=== PATIENT | female | born 1970 | race Caucasian/White ===

== ENCOUNTER → 2023-04-13 15:09 | Outpatient (CLI) | payer OTHER, SELFPAY ==
--- NOTE | 2023-04-13 15:11 | DI.MG.S_ITS ---
BILATERAL DIGITAL SCREENING MAMMOGRAM 3D/2D WITH CAD: 04/13/2023 CLINICAL: Routine screening. Comparison mammogram 03/14/2021, 05/10/2020, 09/30/2019, 09/08/2019, There are scattered areas of fibroglandular density in both breasts (category b / 25%-50% glandular tissue). Current study was also evaluated with a Computer Aided Detection (CAD) system. No significant masses, calcifications, or other findings are seen in either breast. IMPRESSION: NEGATIVE There is no mammographic evidence of malignancy. A 1 year screening mammogram is recommended. Based on the Tyrer Cuzick model (a risk assessment model) the patient's lifetime risk is 11.7% and her 10 year risk is 3.2%. According to the ACR, ACS, and NCCN guidelines, an annual breast MRI exam along with mammogram is recommended if the patient's lifetime risk is 20% or greater. This exam was interpreted at Station ID: [id number]. NOTE: For mammograms, a report in lay terms will be sent to the patient. Approximately 15% of breast malignancies will not be visualized mammographically. In the management of a palpable breast mass, a negative mammogram must not discourage biopsy of a clinically suspicious lesion. Electronically Signed By: Murphy Etienne M.D. slc/:04/23/2023 11:50:23 letter sent: Normal Exam ACR BI-RADS Category 1: Negative 3341F
== END ==
PROVIDERS: PCP Family Medicine; Referring Provider Family Medicine; Visit Provider Family Medicine
DX: Z12.31 Encounter for screening mammogram for malignant neoplasm of breast (principal); E78.5 Hyperlipidemia, unspecified; Z11.4 Encounter for screening for human immunodeficiency virus [HIV]; Z11.59 Encounter for screening for other viral diseases; Z13.220 Encounter for screening for lipoid disorders
CPT/HCPCS: 77063; 77067

== ENCOUNTER → 2023-04-25 08:45 | Outpatient (CLI) | payer OTHER, SELFPAY ==
[2023-04-25 10:16] LABS: Alanine Aminotransferase 25 IU/L (<35); Albumin 4.4 g/dL (3.5-5.0); Albumin Globulin Ratio 1.3 (1.0-2.8); Alkaline Phosphatase 65 U/L (38-126); Aspartate Aminotransferase 28 IU/L (14-36); BUN Creatinine Ratio 15.1 (6-22); Bilirubin Total 0.5 mg/dL (0.2-1.3); Blood Urea Nitrogen 11 mg/dL (7-17); Calcium 9.1 mg/dL (8.4-10.2); Carbon Dioxide 24 mmol/L (22-32); Chloride 105 mmol/L (98-107); Cholesterol 265 mg/dL (140-199); Estimated Glomerular Filt Rate > 60 mL/min (>60); Globulin 3.3 g/dL (1.7-4.1); Glucose 99 mg/dL (70-100); HDL Cholesterol 65 mg/dL (40-60); HEMOLYSIS < 15 (0-50); LDL Cholesterol Calculated 176 mg/dL (<100); Potassium 4.3 mmol/L (3.4-5.1); Sodium 138 mmol/L (137-145); Total Protein 7.7 g/dL (6.3-8.2); Triglycerides 120 mg/dL (35-150)
[2023-04-25 10:20] LABS: High Sensitivity CRP - Cardiac 6.8 mg/L (1.0-3.0)
[2023-04-25 10:31] LABS: Vitamin D 25 Hydroxy (D3) 25.3 ng/mL (30.0-100.0)
[2023-04-25 10:33] LABS: Free T3, Triiodothyronine Free 4.13 pg/mL (2.77-5.27)
[2023-04-25 10:47] LABS: TSH w/ Reflex to FT4 1.58 uIU/mL (0.47-4.68)
[2023-04-26 18:30] LABS: HIV 1 & 2 Ab/Ag 4th Gen Combo NEGATIVE (NEGATIVE); Hep C Virus Ab w/Reflex Quant NEGATIVE s/c (NEGATIVE)
== END ==
PROVIDERS: PCP Family Medicine; Referring Provider Family Medicine; Visit Provider Family Medicine
DX: E78.5 Hyperlipidemia, unspecified (principal); Z11.4 Encounter for screening for human immunodeficiency virus [HIV]; Z11.59 Encounter for screening for other viral diseases; Z12.31 Encounter for screening mammogram for malignant neoplasm of breast; Z13.220 Encounter for screening for lipoid disorders; E03.9 Hypothyroidism, unspecified; E66.9 Obesity, unspecified; Z68.33 Body mass index [BMI] 33.0-33.9, adult; E55.9 Vitamin D deficiency, unspecified
CPT/HCPCS: 36415; 80053; 80061; 82306; 84443; 84481; 86140; 86803; 87389

== ENCOUNTER → 2023-08-15 08:28 | Outpatient (CLI) | payer OTHER, SELFPAY ==
[2023-08-15 09:50] LABS: Cholesterol 199 mg/dL (140-199); HDL Cholesterol 61 mg/dL (40-60); LDL Cholesterol Calculated 117 mg/dL (<100); Triglycerides 107 mg/dL (35-150)
[2023-08-15 09:56] LABS: High Sensitivity CRP - Cardiac 3.6 mg/L (1.0-3.0)
== END ==
PROVIDERS: PCP Family Medicine; Referring Provider Family Medicine; Visit Provider Family Medicine
DX: E78.5 Hyperlipidemia, unspecified (principal); E66.9 Obesity, unspecified; Z79.890 Hormone replacement therapy; Z68.33 Body mass index [BMI] 33.0-33.9, adult
CPT/HCPCS: 36415; 80061; 86140

== ENCOUNTER → 2023-10-15 14:33 | Outpatient (CLI) | payer OTHER, SELFPAY ==
[2023-10-15 15:54] LABS: Vitamin D 25 Hydroxy (D3) 39.9 ng/mL (30.0-100.0)
[2023-10-17 16:01] LABS: Estradiol <5.0 pg/mL (.); Estriol,Serum <0.1 ng/mL (.); Estrone,Serum 39 pg/mL (.)
== END ==
LOC: LAB 14:33
PROVIDERS: PCP Family Medicine; Referring Provider Family Medicine; Visit Provider Family Medicine
DX: E55.9 Vitamin D deficiency, unspecified (principal); Z79.890 Hormone replacement therapy
CPT/HCPCS: 36415; 82306; 82670; 82677; 82679

== ENCOUNTER 2023-11-08 09:25 | Day surgery (SDC) | payer OTHER, SELFPAY ==
[2023-11-08 09:40] VITALS: BP 121/77; PULSE 73; RESP 17; TEMP 36.6; O2SAT 97
[2023-11-08] MEDS: LACTATED RINGERS 1,000 ML 42 ML IV (09:51)
--- NOTE | 2023-11-08 09:51 | PM.HP.1 ---
History of Present Illness History of Present Illness Date Patient Seen: 11/08/23 Time Patient Seen: 09:52 Chief complaint: Screening Colonoscopy Narrative: Yaz Miguel is a 52-year-old woman who is here for a screening colonoscopy today. She had one when she was a teenager. No family history of colon cancer. [facility] Medical History (Updated 11/08/23 @ 09:52 by Mansoor Chance MD) Chicken pox (~1976) Dry eyes Human papilloma virus (~1999) Abnormal Pap smear of cervix (~1999) Surgical History (Updated 12/08/22 @ 20:22 by Parvin Dias) Anesthesia H/O left wrist surgery (~2011) Family History (Updated 12/08/22 @ 20:29 by Parvin Dias) Father Diabetes mellitus Stroke Dementia Pulmonary disease Mother COVID-19 Grandmother Kidney disorder Social History Smoking Status: Former smoker Tobacco: How many years used: 15 alcohol intake: current substance use type: marijuana (daily ) Meds Home Medications and Allergies Home Medications Medication Instructions Recorded Confirmed Type levonorgestrel 21 mcg/24 hours (8 intrauterine 11/28/22 09/03/23 History yrs) 52 mg intrauterine device (Mirena) cholecalciferol (vitamin D3) PO 09/03/23 09/03/23 History coenzyme Q10 10 mg capsule 10 mg PO ONCE 09/03/23 09/03/23 History estradiol 0.0375 mg/24 hr 1 patch transdermal 2XW #8 ea 09/03/23 09/03/23 Rx semiweekly transdermal patch multivitamin 1 tab PO DAILY 09/03/23 09/03/23 History omega-3 fatty acids [Fish Oil] PO 09/03/23 09/03/23 History rosuvastatin 10 mg tablet 10 mg PO DAILY #90 tabs 09/03/23 09/03/23 Rx peg 3350-sod sulf,avymh-ydh-qwt 1,000 ml PO DIRECTED #2,000 mL 10/04/23 Rx 178.7-7.3-0.5-1.12-0.9 gram oral soln (Suflave) Allergies Allergy/AdvReac Type Severity Reaction Status Date / Time No Known Drug Allergies Allergy Verified 11/08/23 09:37 Exam Vital Signs (past 8 hours): - 11/08/23 09:40 Temperature 97.9 F Pulse Rate 73 Respiratory Rate 17 Blood Pressure 121/77 Pulse Oximetry 97 Oxygen Delivery Method Room Air Oxygen Delivery Method Room Air Const General: No acute distress Assessment & Plan Assessment and plan (1) Colon cancer screening: Status: Acute Plan Yaz is a 52-year-old woman who is here for an average risk screening colonoscopy. We reviewed the risks and benefits and she would like to proceed.
--- NOTE | 2023-11-08 10:48 | P.OP.COLON_ITS ---
Operative Date/Time/Diagnoses Date of procedure: 11/08/23 Time of procedure: 10:48 Pre-op diagnosis: Colon cancer screening Post-op diagnosis: same Procedure & Clinicians Study performed: Colonoscopy Same procedure as scheduled: Yes Surgeon: Mansoor Chance Procedure Notes Procedure in detail: Surgeon: Mansoor Chance MD Anesthesia: Isabela Cook CRNA Procedure: The patient was brought to the endoscopy suite, placed in left lateral decubitus position. The patient was connected to monitoring devices. A time-out was performed. Sedation was administered. Once the patient was adequately sedated, a digital rectal exam was performed and mild external hemorrhoids were noted. The scope was then inserted and advanced to the cecum where the appendiceal orifice was identified and photographed. The scope was then slowly withdrawn over greater than 6 minutes. The mucosa was thoroughly i nspected. No abnormalities were found. The scope was retroflexed in the rectum. Mild internal hemorrhoids were noted. The scope was straightened and removed. The patient was awakened and brought to recovery. Scope withdrawal time: 7 minutes Sedation time: 12 minutes EBL: 0 Findings: Mild hemorrhoids Post-procedure Recommendations: Colonoscopy in 10 years Disposition: PACU
[2023-11-08 10:55] VITALS: BP 105/70; PULSE 63; RESP 15; TEMP 36.3; O2SAT 96
[2023-11-08 10:58] VITALS: BP 113/69; PULSE 61; RESP 17; O2SAT 98
[2023-11-08 11:01] VITALS: BP 130/85; PULSE 62; RESP 17; O2SAT 99
== END 2023-11-08 11:03 | disposition home or self-care (01) ==
PROVIDERS: PCP Family Medicine; Referring Provider Surgery; Visit Provider Surgery
PROC: 0DJD8ZZ Inspection of Lower Intestinal Tract, Via Natural or Artificial Opening Endoscopic (ICD-10-PCS; CPT 45378; principal; 2023-11-08 10:15)
DX: Z12.11 Encounter for screening for malignant neoplasm of colon (principal); K64.8 Other hemorrhoids
CPT/HCPCS: 45378; J2704

== ENCOUNTER → 2024-05-07 13:11 | Outpatient (CLI) | payer OTHER, SELFPAY ==
--- NOTE | 2024-05-07 13:12 | DI.MG.S_ITS ---
BILATERAL DIGITAL SCREENING MAMMOGRAM 3D/2D WITH CAD: 05/07/2024 CLINICAL: Routine screening. Family history of breast cancer. Comparison is made to exam dated: 04/13/2023 mammogram - [facility]. There are scattered areas of fibroglandular density (category b / 25%-50% glandular tissue). Current study was also evaluated with a Computer Aided Detection (CAD) system. No significant masses, calcifications, or other findings are seen in either breast. There has been no significant interval change. IMPRESSION: NEGATIVE There is no mammographic evidence of malignancy. A 1 year screening mammogram is recommended. Based on the Tyrer Cuzick model (a risk assessment model) the patient's lifetime risk is 8.9% and her 10 year risk is 2.5%. According to the ACR, ACS, and NCCN guidelines, an annual breast MRI exam along with mammogram is recommended if the patient's lifetime risk is 20% or greater. This exam was interpreted at Station ID: [id number]. NOTE: For mammograms, a report in lay terms will be sent to the patient. Approximately 15% of breast malignancies will not be visualized mammographically. In the management of a palpable breast mass, a negative mammogram must not discourage biopsy of a clinically suspicious lesion. Electronically Signed By: Violeta Davenport M.D., Ph.D. yordan/primo:05/07/2024 13:30:38 letter sent: Normal Exam ACR BI-RADS Category 1: Negative 3341F
== END ==
PROVIDERS: PCP Family Medicine; Referring Provider Family Medicine; Visit Provider Family Medicine
DX: Z12.31 Encounter for screening mammogram for malignant neoplasm of breast (principal); Z80.3 Family history of malignant neoplasm of breast
CPT/HCPCS: 77063; 77067

== ENCOUNTER → 2024-12-01 07:02 | Outpatient (CLI) | payer OTHER, SELFPAY ==
[2024-12-01 07:59] LABS: Alanine Aminotransferase 27 IU/L (<35); Albumin 4.5 g/dL (3.5-5.0); Albumin Globulin Ratio 1.6 (1.0-2.8); Alkaline Phosphatase 65 U/L (38-126); Aspartate Aminotransferase 30 IU/L (14-36); Bilirubin Total 0.9 mg/dL (0.2-1.3); Blood Urea Nitrogen 15 mg/dL (7-17); Calcium 9.8 mg/dL (8.4-10.2); Carbon Dioxide 24 mmol/L (22-32); Chloride 103 mmol/L (98-107); Cholesterol 214 mg/dL (140-199); Estimated Glomerular Filt Rate > 60 mL/min (>60); Globulin 2.8 g/dL (1.7-4.1); Glucose 113 mg/dL (70-100); HDL Cholesterol 87 mg/dL (40-60); HEMOLYSIS < 15 (0-50); LDL Cholesterol Calculated 96 mg/dL (<100); Potassium 4.1 mmol/L (3.4-5.1); Sodium 135 mmol/L (137-145); Total Protein 7.3 g/dL (6.3-8.2); Triglycerides 156 mg/dL (35-150)
[2024-12-02 03:08] LABS: CRP, High Sensitivity 3.55 mg/L (0.00-3.00)
== END ==
PROVIDERS: PCP Family Medicine; Referring Provider Family Medicine; Visit Provider Family Medicine
DX: R79.82 Elevated C-reactive protein (CRP) (principal); E78.5 Hyperlipidemia, unspecified
CPT/HCPCS: 36415; 80053; 80061; 86140

== ENCOUNTER → 2025-08-15 08:45 | Outpatient (CLI) | payer OTHER, SELFPAY ==
--- NOTE | 2025-08-15 08:46 | DI.MG.S_ITS ---
MM screening mammo BI: 08/15/2025. BI-RADS: 1 CLINICAL: 54-year old female for bilateral screening mammogram. Tyrer-Cuzick lifetime risk of 17.3%. Current reported family history of breast cancer: sister. PRIOR EXAMS 05/07/2024, 04/13/2023. MAMMOGRAPHY TECHNIQUE: 2D and 3D (tomosynthesis) digital mammographic views obtained, with additional images as needed for full coverage. Current study was also evaluated with a Computer Aided Detection (CAD) system. DENSITY B. There are scattered areas of fibroglandular density. MAMMOGRAPHY FINDINGS Bilateral: No suspicious mass, asymmetry, microcalcification, or other abnormality seen. IMPRESSION: * No evidence of malignancy. RECOMMENDATIONS Bilateral * Annual screening mammography. OVERALL ASSESSMENT CATEGORY BI-RADS-1: Negative. The [employer] recommends annual screening mammography beginning at age 40 for women with average risk of breast cancer. ELECTRONICALLY SIGNED: Paco Keller M.D. on 08/17/2025 at 07:37:01 AM PT Interpreting Station ID: [id number]
== END ==
PROVIDERS: PCP Family Medicine; Referring Provider Family Medicine; Visit Provider Family Medicine
DX: Z12.31 Encounter for screening mammogram for malignant neoplasm of breast (principal); Z80.3 Family history of malignant neoplasm of breast
CPT/HCPCS: 77063; 77067